=== PATIENT | male | born 1955 | race Caucasian/White ===

== ENCOUNTER 2022-12-21 10:21 | Outpatient (OUT) | payer MEDICARE, OTHER, SELFPAY ==
--- NOTE | 2022-12-21 10:29 | XR_ITS ---
[address] [address] Patient Name: GA TUCKER MRN: [id number] date: 1955 Sex: M Assigned Patient Location: [facility] Current Patient Location: [facility] Accession/Order Number: [id number] Exam Date: 12/21/2022 10:29 Report Date: 12/22/2022 07:55 At the request of: EM QUISPE Procedure: XR ankle RT min 3V PROCEDURE: XR ankle RT min 3V HISTORY: RIGHT ANKLE PAIN COMPARISON: XR ankle right 11/23/2022 FINDINGS: BONES:Mechanical fusion of the ankle joint and hindfoot via intramedullary lon and locking screws. Fractured screw remnant within distal tibia from prior medial malleolus repair. Prior resection of distal fibula. SOFT TISSUES: Moderate lateral soft tissue swelling. EFFUSION:None visible. OTHER: Negative. IMPRESSION: 1. Stable surgical changes without evidence of hardware failure or change in alignment, other than known remote fractured screw remnant from medial malleolus repair. Electronically authenticated by: TONY HENDRIX Date: 12/22/2022 07:55
== END 2022-12-21 10:22 ==
LOC: RAD 10:21
PROVIDERS: PCP Physician Assistant; Visit Provider Physician Assistant
DX: M12.571 Traumatic arthropathy, right ankle and foot (principal)
CPT/HCPCS: 73610

== ENCOUNTER 2023-01-14 09:00 | Outpatient (OUT) | payer MEDICARE, OTHER, SELFPAY | END 2023-01-14 09:01 | disposition home or self-care (01) | LOC: WC 01-28 08:00 | PROVIDERS: PCP Podiatrist Foot & Ankle Surgery; Visit Provider Podiatrist Foot & Ankle Surgery | DX: L97.312 Non-pressure chronic ulcer of right ankle with fat layer exposed (principal); M12.571 Traumatic arthropathy, right ankle and foot; M24.571 Contracture, right ankle; G89.29 Other chronic pain; I10 Essential (primary) hypertension; I25.10 Atherosclerotic heart disease of native coronary artery without angina pectoris | CPT/HCPCS: 11042; A6213 ==

== ENCOUNTER 2023-02-01 08:20 | Outpatient (OUT) | payer MEDICARE, OTHER, SELFPAY ==
--- NOTE | 2023-02-01 08:28 | XR_ITS ---
The [address] [address] Patient Name: GA TUCKER MRN: [id number] date: 1955 Sex: M Assigned Patient Location: Current Patient Location: Accession/Order Number: [id number] Exam Date: 02/01/2023 08:27 Report Date: 02/01/2023 09:40 At the request of: ROSALBA MORGAN Procedure: XR ankle RT min 3V EXAM: XR ankle RT min 3V HISTORY: RIGHT ANKLE PAIN COMPARISON: 12/21/2012. TECHNIQUE: 3 views right ankle. FINDINGS: Previous tibiotalar and subtalar joints effusion with wall tibial intramedullary lon and tibial and calcaneal interlocking screws. Hardware is intact without complication. Incomplete fusion across the arthrodesis sites. Old internal fixation screw at the anterior and medial aspect distal tibia. Remote distal fibular resection. No acute fracture or bone destruction. Mild diffuse soft tissue swelling and edema similar to prior. XR/XR ankle RT min 3V IMPRESSION: No interval acute process or significant change from prior. Stable chronic postoperative change. Electronically authenticated by: ERIKA BRITT Date: 02/01/2023 09:40
== END 2023-02-01 08:21 | disposition home or self-care (01) ==
LOC: WC 08:21
PROVIDERS: PCP Podiatrist Foot & Ankle Surgery; Visit Provider Podiatrist Foot & Ankle Surgery
DX: M25.571 Pain in right ankle and joints of right foot (principal); L97.312 Non-pressure chronic ulcer of right ankle with fat layer exposed
CPT/HCPCS: 11042; 73610; A6213

== ENCOUNTER 2023-02-11 08:32 | Outpatient (OUT) | payer MEDICARE, OTHER, SELFPAY | END 2023-02-11 08:33 | disposition home or self-care (01) | LOC: WC 08:32 | PROVIDERS: PCP Podiatrist Foot & Ankle Surgery; Visit Provider Podiatrist Foot & Ankle Surgery | DX: L97.312 Non-pressure chronic ulcer of right ankle with fat layer exposed (principal) | CPT/HCPCS: 11042 ==

== ENCOUNTER 2023-03-30 09:02 | Outpatient (OUT) | payer MEDICARE, OTHER, SELFPAY ==
--- NOTE | 2023-03-30 | XR_ITS ---
[address] [address] Patient Name: GA TUCKER MRN: [id number] date: 1955 Sex: M Assigned Patient Location: [facility] Current Patient Location: [facility] Accession/Order Number: [id number] Exam Date: 03/30/2023 09:25 Report Date: 03/30/2023 10:15 At the request of: ROSALBA MORGAN Procedure: XR ankle RT min 3V Exam: Radiographs: XR ankle RT min 3V Reason for exam: RIGHT ANKLE PAIN Comparison: Plain films dated 02/01/2023 XR/XR ankle RT min 3V IMPRESSION: Right tibial intramedullary lon extending across the tibiotalar and subtalar joints, hardware is intact. Resection of the distal fibula. 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 Atherosclerotic calcifications. Remainder unremarkable. Electronically authenticated by: MARAH ZEPEDA Date: 03/30/2023 10:15
== END 2023-03-30 09:03 | disposition home or self-care (01) ==
LOC: RAD 09:02
PROVIDERS: Visit Provider Podiatrist Foot & Ankle Surgery
DX: M25.571 Pain in right ankle and joints of right foot (principal)
CPT/HCPCS: 73610